=== PATIENT | male | born 1965 | race Caucasian/White ===

== ENCOUNTER 2019-05-22 03:52 | Emergency (ER) | payer MEDICAID ==
[~2019-05-22] VITALS: Ht 182.9 cm; Wt 90.7 kg
[2019-05-22 04:15] VITALS: BP 112/62
[2019-05-22 05:02] LABS: BASOPHILS % (AUTO) 1.8 % (0.0-2.0); EOSINOPHILS % (AUTO) 1.6 % (0.0-3.0); HEMATOCRIT 48.4 % (42.0-52.0); HEMOGLOBIN 16.3 G/DL (14.2-18.0); LYMPHOCYTES % (AUTO) 22.3 % (20.0-45.0); MEAN CORPUSCULAR VOLUME 81 FL (80-99); NEUTROPHILS % (AUTO) 55.3 % (45.0-75.0); PLATELET COUNT 164 K/UL (150-450); RED BLOOD COUNT 5.98 M/UL (4.70-6.10); RED CELL DISTRIBUTION WIDTH 13.5 % (11.6-14.8); WHITE BLOOD COUNT 3.6 K/UL (4.8-10.8)
[2019-05-22 05:07] LABS: APPEARANCE,URINE CLEAR; BILIRUBIN, URINE 3+ (NEGATIVE); GLUCOSE, URINE (UA) NEGATIVE (NEGATIVE); KETONES,URINE NEGATIVE (NEGATIVE); LEUKOCYTE ESTERASE ,URINE 1+ (NEGATIVE); NITRITE,URINE NEGATIVE (NEGATIVE); PH,URINE 6 (4.5-8.0); PROTEIN,URINE 2+ (NEGATIVE); UROBILINOGEN,URINE 12 MG/DL (0.0-1.0)
[2019-05-22 05:12] LABS: ANION GAP 5 mmol/L (5-15); BLOOD UREA NITROGEN 13 mg/dL (7-18); CALCIUM 8.1 MG/DL (8.5-10.1); CARBON DIOXIDE 29 MMOL/L (21-32); CHLORIDE 106 MMOL/L (98-107); CREATININE 0.9 MG/DL (0.55-1.30); POTASSIUM 4.1 MMOL/L (3.5-5.1); SODIUM 140 MMOL/L (136-145)
[2019-05-22 05:32] LABS: COLOR,URINE AMBER
[2019-05-22 05:41] LABS: ALANINE AMINOTRANSFERASE 3704 U/L (12-78); ALBUMIN/GLOBULIN RATIO 0.9 (1.0-2.7); ALKALINE PHOSPHATASE 159 U/L (46-116); ASPARTATE AMINO TRANSFERASE 2561 U/L (15-37); BILIRUBIN,TOTAL 3.7 MG/DL (0.2-1.0)
[2019-05-22 05:42] LABS: BILIRUBIN,DIRECT 2.9 MG/DL (0.0-0.3)
[2019-05-22] MEDS ORDERED: Omnipaque-300 100ml vial INJ PRN (06:00)
--- NOTE | 2019-05-22 06:22 | Emergency Room Report ---
History of Present Illness General Chief Complaint: Generalized Weakness Source: Patient (Brice Klein M.D.) Present Illness HPI 54-year-old male presents to emergency room with 2 days of generalized weakness and diffuse abdominal pain associated with nausea. Patient reports he has had decreased p.o. intake since 3:00 yesterday. He reports eating a wine ham cheese pineapple pizza. He denies eating any spicy food. Patient denies any abdominal surgeries. He does feel a hernia protrusion in his lower abdomen occasionally. Patient denies any past medical history. Of note patient reported taking marijuana Gummies 2 weeks ago. He denies any heavy alcohol consumption. He denies any vomiting, hematochezia, melena, bowel changes, diarrhea, recent travel, recent illness. (Brice Klein M.D.) Allergies: Coded Allergies: No Known Allergies (Unverified , 05/22/19) Nursing Documentation-[facility] Past Medical History: No History, Except For Hx Asthma: Yes (Brice Klein M.D.) Review of Systems Constitutional: Denies: chills, fever Respiratory: Denies: cough, shortness of breath Cardiovascular: Denies: chest pain, palpitations Gastrointestinal: Reports: abdominal pain, nausea; Denies: diarrhea, vomiting Genitourinary: Denies: hematuria, pain Musculoskeletal: Denies: joint swelling Skin: Denies: rash, lesions Neurological: Denies: headache, dizziness (Brice Klein M.D.) Physical Exam Vital Signs Date Time Temp Pulse Resp B/P (MAP) Pulse Ox O2 Delivery O2 Flow Rate FiO2 05/22/19 04:07 98.2 80 18 105/57 (73) 97 Room Air Sp02 EP Interpretation: reviewed General Appearance: well appearing, no apparent distress, non-toxic Head: normocephalic, atraumatic Eyes: bilateral eye normal inspection ENT: hearing grossly normal, EOM grossly intact, moist mucus membranes Neck: supple Respiratory: lungs clear, normal breath sounds, no respiratory distress, speaking full sentences Cardiovascular #1: regular rate, rhythm, normal capillary refill Cardiovascular #2: 2+ radial (R), 2+ radial (L) Gastrointestinal: soft, no mass, no organomegaly, no peritonitis, no bruit, non -distended, no guarding, no rebound, tenderness - Epigastric Rectal: deferred Musculoskeletal: moves extm spontaneously, no lower extremity edema Neurologic: grossly normal Psychiatric: mood/affect normal Skin: warm/dry, normal turgor (Brice Klein M.D.) Medical Decision Making Diagnostic Impression: Primary Impression: Elevated liver enzymes Additional Impression: Elevated bilirubin ER Course 54-year-old male presents to emergency room with 2 days of generalized weakness and diffuse abdominal pain associated with nausea. Patient reports he has had decreased p.o. intake since 3:00 yesterday. He reports eating a wine ham cheese pineapple pizza. He denies eating any spicy food. Patient denies any abdominal surgeries. He does feel a hernia protrusion in his lower abdomen occasionally. Patient denies any past medical history. Of note patient reported taking marijuana Gummies 2 weeks ago. He denies any heavy alcohol consumption. He denies any vomiting, hematochezia, melena, bowel changes, diarrhea, recent travel, recent illness. Differential includes gastroenteritis, gastritis, biliary colic, cholecystitis, acute abdomen Gastroparesis, diverticulitis, diverticulosis, or another injury. Will perform lab testing and reassess Lab testing reviewed. noted to have grossly elecated liver enzymes. will perform ct to further evaluate. Laboratory Tests Test 05/22/19 04:47 05/22/19 04:50 White Blood Count 3.6 K/UL (4.8-10.8) L Red Blood Count 5.98 M/UL (4.70-6.10) Hemoglobin 16.3 G/DL (14.2-18.0) Hematocrit 48.4 % (42.0-52.0) Mean Corpuscular Volume 81 FL (80-99) Mean Corpuscular Hemoglobin 27.3 PG (27.0-31.0) Mean Corpuscular Hemoglobin Concent 33.6 G/DL (32.0-36.0) Red Cell Distribution Width 13.5 % (11.6-14.8) Platelet Count 164 K/UL (150-450) Mean Platelet Volume 5.3 FL (6.5-10.1) L Neutrophils (%) (Auto) 55.3 % (45.0-75.0) Lymphocytes (%) (Auto) 22.3 % (20.0-45.0) Monocytes (%) (Auto) 19.0 % (1.0-10.0) H Eosinophils (%) (Auto) 1.6 % (0.0-3.0) Basophils (%) (Auto) 1.8 % (0.0-2.0) Sodium Level 140 MMOL/L (136-145) Potassium Level 4.1 MMOL/L (3.5-5.1) Chloride Level 106 MMOL/L (98-107) Carbon Dioxide Level 29 MMOL/L (21-32) Anion Gap 5 mmol/L (5-15) Blood Urea Nitrogen 13 mg/dL (7-18) Creatinine 0.9 MG/DL (0.55-1.30) Estimate Glomerular Filtration Rate > 60 mL/min (>60) Glucose Level 149 MG/DL (74-106) H Calcium Level 8.1 MG/DL (8.5-10.1) L Total Bilirubin 3.7 MG/DL (0.2-1.0) H Direct Bilirubin 2.9 MG/DL (0.0-0.3) H Aspartate Amino Transferase (AST) 2561 U/L (15-37) H Alanine Aminotransferase (ALT) 3704 U/L (12-78) H Alkaline Phosphatase 159 U/L (46-116) H Total Protein 6.5 G/DL (6.4-8.2) Albumin 3.0 G/DL (3.4-5.0) L Globulin 3.5 g/dL Albumin/Globulin Ratio 0.9 (1.0-2.7) L Lipase 156 U/L (73-393) Urine Color Mi Urine Appearance Clear Urine pH 6 (4.5-8.0) Urine Specific [place] 1.025 (1.005-1.035) Urine Protein 2+ (NEGATIVE) H Urine Glucose (UA) Negative (NEGATIVE) Urine Ketones Negative (NEGATIVE) Urine Blood 1+ (NEGATIVE) H Urine Nitrite Negative (NEGATIVE) Urine Bilirubin 3+ (NEGATIVE) H Urine Ictotest Positive (NEGATIVE) Urine Urobilinogen 12 MG/DL (0.0-1.0) H Urine Leukocyte Esterase 1+ (NEGATIVE) H Urine RBC 0-2 /HPF (0 - 0) H Urine WBC 0-2 /HPF (0 - 0) Urine Squamous Epithelial Cells None /LPF (NONE/OCC) Urine Bacteria Few /HPF (NONE) Lab Results Impression Patient found to have low WBC, extremely elevated AST ALT, alk phos. Urinalysis noted to have 2+ protein 1+ blood, leukocyte esterase (Brice Klein M.D.) ER Course This patient has been turned over to me. He had presented with liver failure. The patient was awaiting higher level of care transfer. Unfortunately, there were no available beds at the transferring hospitals. The nurse caring for the patient reported to me that the patient had eloped. I was unable to speak with the patient before he eloped from the emergency department. (Lucía Jung DO) Reevaluation Time: 06:21 Last Vital Signs Date Time Temp Pulse Resp B/P (MAP) Pulse Ox O2 Delivery O2 Flow Rate FiO2 05/22/19 04:15 85 17 Room Air 05/22/19 04:15 98.2 112/62 98 Status: unchanged (Brice Klein M.D.) Reevaluation Impression Assumed care of the patient approximately 6:30 AM. Briefly this is a 54-year- old male with no reported medical history but does not follow with a physician regularly. He came in for several days intractable nausea and vomiting. LFTs found to be significantly elevated as his bilirubin. At the time of signout we are awaiting CT of the abdomen pelvis as well as an ultrasound of the abdomen. Symptoms are now controlled. 1600: CT scan did not show evidence of obstruction or significant liver pathology. Ultrasound confirms these findings. There are similar findings enumerated in the report. Repeat labs confirmed elevation in bilirubin and LFTs. Discussed with gastroenterology who stated he needs to be transferred to a higher level of care given his severe abnormalities on labs. Concern for acute liver failure at this time as the synthetic function also appears to be affected given elevated INR. Have called several facilities in the area who would accept the patient however they have no current beds available. Patient will be boarding in the emergency department until a bed opens up at the higher level of care hospital that can accept the patient. We will continue to try to transport. (Jakob Malagon MD) Disposition: ELOPED Condition: Serious Scripts Ondansetron Odt* (ZOFRAN ODT*) 4 Mg Tab.rapdis 4 MG BC EVERY 6 HOURS PRN for Nausea & Vomiting, #10 TAB 0 Refills Prov: Jakob Malagon MD 05/22/19 Referrals: NOT CHOSEN IPA/,REFERRING (PCP) Brice Klein M.D. May 22, 2019 06:21 Jakob Malagon MD May 22, 2019 06:33 Lucía Jung DO May 22, 2019 19:12
[2019-05-22 07:13] VITALS: BP 110/65
--- NOTE | 2019-05-22 07:16 | Diagnostic Imaging Report ---
INDICATION: Abdominal pain TECHNIQUE: Continuous helical transaxial imaging of the abdomen and pelvis was obtained from the lung bases to the pubic symphysis during intravenous contrast administration. Coronal 2-D reformats were also obtained. Study obtained in a Siemens sensation [address] Automatic Exposure Control was utilized. Total Dose length Product (DLP): [address] Dose Index Volume (CTDIvol): 21.6 mGy COMPARISON: None FINDINGS: Lungs: The visualized lung bases are clear. Liver: Unremarkable Gallbladder/biliary system: Gallbladder is contracted. No obvious gallstones are seen. There is no biliary ductal dilatation identified.. Spleen: Unremarkable Pancreas: Unremarkable Kidneys: Several punctate nonobstructive stones are demonstrated within the left kidney. The largest of these is about 8 mm. There is no hydronephrosis. Both kidneys enhance symmetrically.. Adrenal glands: Unremarkable Aorta/IVC: Aorta is normal caliber. There is mild calcification of portions of the iliac arteries bilaterally. Bowel: There is a moderate-sized right inguinal hernia containing several loops of small bowel. There is no associated obstruction or obvious inflammatory changes associated with this. There is a fat-containing small left inguinal hernia as well. Diverticula demonstrated within the colon. There is no evidence of acute diverticulitis. The appendix is normal. Bladder: There is mild thickening of the wall the urinary bladder. Consider chronic cystitis. Peritoneum: There is no free fluid. Bones: Mild vertebral endplate osteophytes are noted within portions of the lumbar spine. The lumbar facets appear hypertrophic. IMPRESSION: Moderate right inguinal hernia containing small bowel. No associated bowel obstruction evidenced on this study. Please correlate clinically. Smaller left fat-containing inguinal hernia. Thickening of the wall the urinary bladder. Consider chronic cystitis. Nonobstructive stones of the left kidney. Contracted gallbladder not evaluated well on this examination. Diverticulosis of the colon. No definite diverticulitis. [facility] has communicated the preliminary results to the Emergency Department. Their findings are largely concordant with this report. The CT scanner at [facility] is accredited by the [employer] and the scans are performed using dose optimization techniques as appropriate to a performed exam including Automatic Exposure control.
[2019-05-22] MEDS ORDERED: ONDANSETRON ODT4 MG BC (08:11)
[2019-05-22 09:17] LABS: ANION GAP 7 mmol/L (5-15); BLOOD UREA NITROGEN 12 mg/dL (7-18); CALCIUM 7.5 MG/DL (8.5-10.1); CARBON DIOXIDE 26 MMOL/L (21-32); CHLORIDE 105 MMOL/L (98-107); CREATININE 0.8 MG/DL (0.55-1.30); POTASSIUM 4.3 MMOL/L (3.5-5.1); SODIUM 137 MMOL/L (136-145)
[2019-05-22 09:26] LABS: ALBUMIN 2.7 G/DL (3.4-5.0); ALBUMIN/GLOBULIN RATIO 0.8 (1.0-2.7); ALKALINE PHOSPHATASE 153 U/L (46-116); BILIRUBIN,TOTAL 3.6 MG/DL (0.2-1.0)
[2019-05-22 09:37] LABS: ALANINE AMINOTRANSFERASE 3619 U/L (12-78); ASPARTATE AMINO TRANSFERASE 2709 U/L (15-37)
[2019-05-22 09:51] LABS: BILIRUBIN,DIRECT 2.9 MG/DL (0.0-0.3)
[2019-05-22 12:13] LABS: INR 1.4 (0.9-1.1)
--- NOTE | 2019-05-22 12:29 | Diagnostic Imaging Report ---
Indication: Abdominal pain Technique: Grayscale and duplex Doppler imaging of the abdomen performed. Comparison: None Findings: The liver is unremarkable. Doppler interrogation of the main portal vein shows patency with hepatopedal, monophasic flow. There is no biliary ductal dilatation identified. Gallbladder is unremarkable. Spleen measures 12.9 cm. There demonstrated part of the pancreas, aorta and IVC show no definite abnormalities. There are nonobstructive left renal calculi. There is no hydronephrosis. IMPRESSION: Nonobstructive stones within the left kidney. Borderline splenomegaly
[2019-05-22 17:10] VITALS: BP 125/70
[2019-05-22 19:13] VITALS: BP 125/70
== END 2019-05-22 19:15 | disposition left against medical advice (07) ==
LOC: EMR 04:30
DX: R53.1 Weakness (principal); R74.8 Abnormal levels of other serum enzymes; R11.0 Nausea; K72.90 Hepatic failure, unspecified without coma
CPT/HCPCS: 36415; 74177; 76700; 80053; 80307; 81003; 82248; 83690; 85025; 85610; 85730; 96361; 96374; G0480; G0481; J2405; J7030; Q9967; Z7502; 99284